=== PATIENT | male | born 1950 | race Caucasian/White ===

== ENCOUNTER 2017-07-17 09:22 | Observation (INO) | payer MEDICARE ==
[~2017-07-17] VITALS: Ht 172.7 cm; Wt 91.1 kg
[2017-07-17] MEDS ORDERED: ASPIRIN 325 MG TABLET EC PO ONE (10:00)
[2017-07-17] MEDS ORDERED: ASPIRIN 325 MG TABLET EC ONE (10:00)
[2017-07-17] MEDS ORDERED: LISI40TA PO (10:02)
[2017-07-17] MEDS ORDERED: BUSP10TA PO (10:02)
[2017-07-17] MEDS ORDERED: METF500T9 PO (10:02)
[2017-07-17] MEDS ORDERED: ASPI-515 PO (10:02)
[2017-07-17] MEDS ORDERED: IBUP-1223 PO (10:02)
[2017-07-17] MEDS ORDERED: GABA800T2 PO (10:02)
[2017-07-17 10:04] VITALS: BP 162/101
[2017-07-17] MEDS ORDERED: NITR0.3T5 SL (10:04)
[2017-07-17] MEDS ORDERED: CARV12.543 PO (10:04)
[2017-07-17] MEDS ORDERED: AMLO1TAB99 PO (10:04)
[2017-07-17 10:34] LABS: BASOPHILS # (AUTO) 0.07 x10^3/uL (0-0.1); BASOPHILS % (AUTO) 1 % (0-1); EOSINOPHILS # (AUTO) 0.04 x10^3/uL (0-0.4); EOSINOPHILS % (AUTO) 1 % (1-7); LYMPHOCYTES # (AUTO) 1.05 x10^3/uL (1-3.4); LYMPHOCYTES % (AUTO) 15 % (22-44); MD NO; MEAN CORPUSCULAR HEMOGLOBIN 28.9 pg (27.5-34.5); MEAN CORPUSCULAR HGB CONC 33.7 g/dL (33.2-36.2); MEAN CORPUSCULAR VOLUME 85.9 fL (81-97); MEAN PLATELET VOLUME 7.9 fL (7.4-10.4); MONOCYTES # (AUTO) 0.38 x10^3/uL (0.2-0.8); MONOCYTES % (AUTO) 6 % (2-9); NEUTROPHILS # (AUTO) 5.28 x10^3/uL (1.8-6.8); NEUTROPHILS % (AUTO) 77 % (42-75); PLATELET COUNT 322 x10^3/uL (130-400); RED BLOOD COUNT 5.06 x10^6/uL (4.38-5.82)
[2017-07-17] MEDS ORDERED: NITROGLYCERIN 5 MG/ML, 10ML ONE (10:44)
[2017-07-17] MEDS ORDERED: VERAPAMIL 2.5 MG/ML, 2ML ONE (10:44)
[2017-07-17] MEDS ORDERED: MIDAZOLAM 1 MG/ML, 5ML ONE (10:44)
[2017-07-17] MEDS ORDERED: BIVALIRUDIN 250 MG ONE (10:44)
[2017-07-17] MEDS ORDERED: HEPARIN 1,000 UNITS/ML, 10ML ONE (10:44)
[2017-07-17] MEDS ORDERED: FENTANYL PF 100 MCG/2ML ONE (10:44)
[2017-07-17] MEDS ORDERED: TICAGRELOR 90 MG TABLET ONE (10:44)
[2017-07-17 10:45] LABS: ANION GAP 12 mmol/L (5-15); CALCIUM 8.8 mg/dL (8.5-10.1); CHLORIDE 102 mmol/L (98-107); CREATININE 1.26 mg/dL (0.7-1.3)
[2017-07-17] MEDS ORDERED: LIDOCAINE-MPF 2% ,5ML ONE (10:45)
[2017-07-17] MEDS ORDERED: LIDOCAINE 2%, 2ML ONE (11:35)
[2017-07-17] MEDS: SODIUM CHLORIDE 0.9% 1,000 ML IV SCH ×2 (12:26→20:26)
[2017-07-17] MEDS ORDERED: ACETAMINOPHEN 325 MG TABLET PO PRN (12:30)
[2017-07-17 13:22] VITALS: BP 132/81
[2017-07-17 13:52] VITALS: BP 152/97
[2017-07-17 19:04] VITALS: BP 161/66
[2017-07-17] MEDS ORDERED: ZOLPIDEM 5MG TABLET PO PRN (22:30)
[2017-07-18 01:49] VITALS: BP 159/94
[2017-07-18] MEDS: SODIUM CHLORIDE 0.9% 1,000 ML IV SCH (04:26)
[2017-07-18 07:00] VITALS: BP 162/102
[2017-07-18] MEDS ORDERED: NITR0.3T5 SL (09:26)
== END 2017-07-18 09:45 | disposition home or self-care (01) ==
LOC: CACL 09:22 → 5SO 12:40 → CACL 22:31 → 5SO 22:31 → DCLOUNGE 07-18 09:31
PROVIDERS: ADMIT Internal Medicine Cardiovascular Disease; ATTEND Internal Medicine Cardiovascular Disease
DX: I25.10 Atherosclerotic heart disease of native coronary artery without angina pectoris (principal); I12.9 Hypertensive chronic kidney disease with stage 1 through stage 4 chronic kidney disease, or unspecified chronic kidney disease; I25.2 Old myocardial infarction; E78.5 Hyperlipidemia, unspecified; N18.9 Chronic kidney disease, unspecified; E11.22 Type 2 diabetes mellitus with diabetic chronic kidney disease; R94.31 Abnormal electrocardiogram [ECG] [EKG]; Z23 Encounter for immunization
CPT/HCPCS: 36415; 80048; 85025; 93306; 93458; 93880; 93970; 99156; C1769; C1894; G0378; J1644; J2250; J3010; J3490; J7030; Q9967; J0583

== ENCOUNTER 2017-08-12 04:14 | Inpatient (IN) | payer MEDICARE ==
[2017-08-09 12:35] LABS: MICROSCOPIC INDICATED
[2017-08-09 12:40] LABS: BASOPHILS # (AUTO) 0.03 x10^3/uL (0-0.1); BASOPHILS % (AUTO) 0 % (0-1); EOSINOPHILS # (AUTO) 0.07 x10^3/uL (0-0.4); EOSINOPHILS % (AUTO) 1 % (1-7); LYMPHOCYTES # (AUTO) 1.28 x10^3/uL (1-3.4); LYMPHOCYTES % (AUTO) 18 % (22-44); MD NO; MEAN CORPUSCULAR HEMOGLOBIN 29.6 pg (27.5-34.5); MEAN CORPUSCULAR HGB CONC 34.1 g/dL (33.2-36.2); MEAN CORPUSCULAR VOLUME 86.8 fL (81-97); MEAN PLATELET VOLUME 7.8 fL (7.4-10.4); MONOCYTES # (AUTO) 0.31 x10^3/uL (0.2-0.8); MONOCYTES % (AUTO) 4 % (2-9); NEUTROPHILS # (AUTO) 5.57 x10^3/uL (1.8-6.8); NEUTROPHILS % (AUTO) 77 % (42-75); PLATELET COUNT 338 x10^3/uL (130-400); RED BLOOD COUNT 5.11 x10^6/uL (4.38-5.82); RED CELL DISTRIBUTION WIDTH 14.1 % (9.4-14.8)
[2017-08-09 12:45] LABS: INTERNATIONAL NORMALIZED RATIO 1.07 (0.93-1.1)
[2017-08-09 13:11] LABS: ALANINE AMINOTRANSFERASE 29 U/L (12-78); ALBUMIN 4.1 g/dL (3.4-5.0); ANION GAP 11 mmol/L (5-15); CALCIUM 9.3 mg/dL (8.5-10.1); CHLORIDE 106 mmol/L (98-107); CREATININE 1.33 mg/dL (0.7-1.3)
[2017-08-09 13:13] LABS: ALKALINE PHOSPHATASE 123 U/L (45-117); TOTAL PROTEIN 7.9 g/dL (6.4-8.2)
[2017-08-09 13:19] LABS: HEMOGLOBIN A1C 8.3 % (4.2-6.3)
[~2017-08-12] VITALS: Ht 172.7 cm; Wt 88.9 kg
[~2017-08-12 04:14] MED LIST: AMLO1TAB99 PO; ASPI-515 PO; BUSP10TA PO; CARV12.543 PO; GABA800T2 PO; IBUP-1223 PO; LISI40TA PO; METF500T9 PO; NITR0.3T5 SL
[2017-08-12] MEDS ORDERED: ALBUMIN HUMAN 5% 500 ML IV PRN (04:30)
[2017-08-12 04:34] VITALS: BP_SYST 149; BP_SYST 150; BP_DIAS 90; BP_DIAS 92
[2017-08-12] MEDS ORDERED: DO NOT GIVE MC SCH (05:00)
[2017-08-12] MEDS ORDERED: INSULIN LISPRO 100 UNITS/ML, PEN SQ-INSULIN SCH (05:00)
[2017-08-12] MEDS ORDERED: METOPROLOL TARTRATE 25 MG TABLET PO ONE (05:00)
[2017-08-12] MEDS ORDERED: CHLORHEXIDINE 15 ML BOTTLE MM SCH (05:00)
[2017-08-12] MEDS: MUPIROCIN OINT 2%, 22GM TP SCH ×2 (05:21→21:55)
[2017-08-12] MEDS: SODIUM CHLORIDE FLUSH 10ML SYR IVF SCH ×3 (05:27→21:55)
[2017-08-12] MEDS ORDERED: PAPAVERINE 30 MG/ML, 2ML ONE (07:21)
[2017-08-12] MEDS ORDERED: HEPARIN 1,000 UNITS/ML, 10ML ONE (07:21)
[2017-08-12 07:28] VITALS: BP_SYST 149; BP_SYST 156; BP_DIAS 92; BP_DIAS 96
[2017-08-12] MEDS ORDERED: DEXMEDETOMIDINE 200 MCG in SODIUM CHLORIDE 0.9% 48 ML IV SCH (07:30)
[2017-08-12] MEDS ORDERED: REGULAR INSULIN 62.5 UNITS in SODIUM CHLORIDE 0.9% 249.375 ML IV PRN ×2 (07:30→12:04)
[2017-08-12] MEDS ORDERED: MANNITOL PMX 20% 500 ML IVPB PRN (07:30)
[2017-08-12] MEDS ORDERED: VANCOMYCIN 1,400 MG in SODIUM CHLORIDE 0.9% 250 ML IV PRN (07:30)
[2017-08-12] MEDS ORDERED: PHENYLEPHRINE 10 MG in SODIUM CHLORIDE 0.9% 249 ML IV PRN ×2 (07:30→12:04)
[2017-08-12] MEDS ORDERED: EPINEPHRINE 2 MG in SODIUM CHLORIDE 0.9% 248 ML IV SCH (07:30)
[2017-08-12] MEDS ORDERED: POTASSIUM CHLORIDE 80 MEQ, SODIUM BICARBONATE 8.4% 10 MEQ, MAGNESIUM SULFATE 0.5 GM, LI... IV PRN (07:30)
[2017-08-12] MEDS ORDERED: FENTANYL PF 250 MCG/5ML ONE ×4 (07:32→07:33)
[2017-08-12] MEDS ORDERED: MIDAZOLAM 10MG/2 ML ONE (07:32)
[2017-08-12] MEDS ORDERED: CALCIUM CHLORIDE 10%, 10ML SYR ONE (07:35)
[2017-08-12] MEDS ORDERED: HEPARIN 1,000 UNITS/ML, 10ML IV ONE (08:55)
[2017-08-12] MEDS ORDERED: PAPAVERINE 30 MG/ML, 2ML IVPush ONE (08:56)
[2017-08-12] MEDS: DOCUSATE 100 MG CAPSULE PO SCH ×2 (09:00→21:55)
[2017-08-12] MEDS ORDERED: DESMOPRESSIN 24 MCG in SODIUM CHLORIDE 0.9% 50 ML IVPB ONE (11:30)
[2017-08-12] MEDS ORDERED: SODIUM BICARBONATE 1 MEQ/ML, 50ML VIAL ONE (11:40)
[2017-08-12] MEDS ORDERED: SODIUM BICARB 8.4%, 50ML SYRINGE ONE (11:40)
[2017-08-12] MEDS ORDERED: HEPARIN 1,000 UNITS/ML, 30ML ONE (11:41)
[2017-08-12] MEDS ORDERED: LIDOCAINE 2% 100MG/5ML SYRINGE ONE (11:41)
[2017-08-12] MEDS ORDERED: ALBUMIN HUMAN 25% 50 ML ONE (11:41)
[2017-08-12] MEDS ORDERED: ROCURONIUM 10MG/ML,5ML ONE ×3 (11:44)
[2017-08-12] MEDS ORDERED: PROPOFOL 10 MG/ML, 20ML ONE (11:44)
[2017-08-12] MEDS ORDERED: PROTAMINE SULFATE 10 MG/ML, 25ML ONE ×2 (11:44)
[2017-08-12] MEDS ORDERED: FUROSEMIDE 20 MG/2 ML ONE (11:44)
[2017-08-12] MEDS ORDERED: VASOPRESSIN 20 UNIT/ML, 1ML ONE (11:45)
[2017-08-12] MEDS ORDERED: EPINEPHRINE 1 MG/ML, 1ML ONE (11:45)
[2017-08-12] MEDS ORDERED: SODIUM CHLORIDE 0.9% 1,000 ML IV PRN (12:04)
[2017-08-12] MEDS ORDERED: DOBUTAMINE 250 MG in SODIUM CHLORIDE 0.9% 230 ML IV PRN (12:04)
[2017-08-12] MEDS ORDERED: NITROGLYCERIN/D5W PMX 250 ML IV PRN (12:04)
[2017-08-12] MEDS ORDERED: VASOPRESSIN 50 UNIT in SODIUM CHLORIDE 0.9% 250 ML IV PRN (12:04)
[2017-08-12] MEDS ORDERED: BISACODYL 10 MG SUPP PR PRN (12:30)
[2017-08-12] MEDS ORDERED: LACTATED RINGERS 1,000 ML IV PRN (12:30)
[2017-08-12] MEDS ORDERED: ACETAMINOPHEN 325 MG TABLET PO PRN (12:30)
[2017-08-12] MEDS ORDERED: ONDANSETRON ODT 4 MG PO PRN (12:30)
[2017-08-12] MEDS ORDERED: ACETAMINOPHEN 650 MG SUPP PR PRN (12:30)
[2017-08-12] MEDS ORDERED: EPINEPHRINE 2 MG in SODIUM CHLORIDE 0.9% 248 ML IV PRN (12:30)
[2017-08-12] MEDS ORDERED: GLUCAGON 1 MG IM PRN (12:30)
[2017-08-12] MEDS ORDERED: DEXTROSE 4 GM TAB.CHEW PO PRN (12:30)
[2017-08-12] MEDS ORDERED: MIDAZOLAM 1 MG/ML, 5ML IVPush PRN (12:30)
[2017-08-12] MEDS ORDERED: INSULIN REGULAR 100 UNITS/ML, 3ML VIAL IVPush PRN (12:30)
[2017-08-12] MEDS ORDERED: ONDANSETRON 2MG/ML, 2ML IVPush PRN (12:30)
[2017-08-12] MEDS: KSCALE TO 4.5 IV SCH ×2 (12:30→18:30)
[2017-08-12] MEDS ORDERED: DEXTROSE 50%, 50ML SYRINGE IVPush PRN (12:30)
[2017-08-12] MEDS ORDERED: BISACODYL 5 MG EC TABLET PO PRN (12:30)
[2017-08-12] MEDS ORDERED: PROCHLORPERAZINE 5 MG/ML, 2ML IVPush PRN (12:30)
[2017-08-12 12:59] LABS: GLUCOSE BY BLOOD GAS ANALYZER 193 mg/dL (70-110); HEMOGLOBIN BY BLOOD GAS ANALYZ 12.3 g/dL (14.0-18.0); POTASSIUM BY BLOOD GAS ANALYZR 3.6 mmol/L (3.6-5.5)
[2017-08-12 13:06] LABS: INTERNATIONAL NORMALIZED RATIO 1.21 (0.93-1.1); PROTHROMBIN TIME 12.4 Seconds (9.6-11.5)
[2017-08-12] MEDS: SODIUM BICARB 8.4%, 50ML SYRINGE IV PRN ×2 (13:10→14:32)
[2017-08-12] MEDS: MORPHINE SULFATE 4 MG/ML, 1ML IVPush PRN ×2 (13:35→16:51)
[2017-08-12] MEDS: MAGNESIUM SULFATE 1 GM in SODIUM CHLORIDE 0.9% 50 ML IVPB SCH (13:43)
[2017-08-12] MEDS: DEXMEDETOMIDINE 200 MCG in SODIUM CHLORIDE 0.9% 48 ML IV PRN ×2 (13:47→17:33)
[2017-08-12] MEDS ORDERED: POTASSIUM CHLORIDE PMX 100 ML IV ONE (14:00)
[2017-08-12] MEDS: INSULIN LISPRO 100 UNITS/ML, PEN SQ-INSULIN SCH ×2 (16:00→21:00)
[2017-08-12] MEDS ORDERED: POTASSIUM CHLORIDE 30 MEQ in SODIUM CHLORIDE 0.9% 100 ML IV ONE (19:30)
[2017-08-12] MEDS: VANCOMYCIN 1,300 MG in SODIUM CHLORIDE 0.9% 250 ML IVPB SCH (19:36)
[2017-08-12] MEDS: HYDROcodone/APAP 5/325 TABLET PO PRN (20:01)
[2017-08-12] MEDS: MUPIROCIN OINT 2%, 22GM NAS SCH (21:00)
[2017-08-13] MEDS: KSCALE TO 4.5 IV SCH ×2 (00:30→06:30)
[2017-08-13] MEDS: HYDROcodone/APAP 5/325 TABLET PO PRN ×4 (01:19→15:15)
[2017-08-13] MEDS: MORPHINE SULFATE 4 MG/ML, 1ML IVPush PRN ×4 (02:11→07:46)
[2017-08-13 04:29] LABS: BASOPHILS # (AUTO) 0.02 x10^3/uL (0-0.1); BASOPHILS % (AUTO) 0 % (0-1); EOSINOPHILS % (AUTO) 0 % (1-7); LYMPHOCYTES # (AUTO) 0.77 x10^3/uL (1-3.4); LYMPHOCYTES % (AUTO) 10 % (22-44); MD NO; MEAN CORPUSCULAR HEMOGLOBIN 29.1 pg (27.5-34.5); MEAN CORPUSCULAR HGB CONC 33.6 g/dL (33.2-36.2); MEAN CORPUSCULAR VOLUME 86.6 fL (81-97); MEAN PLATELET VOLUME 7.7 fL (7.4-10.4); MONOCYTES # (AUTO) 0.49 x10^3/uL (0.2-0.8); MONOCYTES % (AUTO) 7 % (2-9); NEUTROPHILS # (AUTO) 6.18 x10^3/uL (1.8-6.8); NEUTROPHILS % (AUTO) 83 % (42-75); PLATELET COUNT 182 x10^3/uL (130-400); RED BLOOD COUNT 3.48 x10^6/uL (4.38-5.82); RED CELL DISTRIBUTION WIDTH 14.2 % (9.4-14.8)
[2017-08-13 04:37] LABS: ANION GAP 7 mmol/L (5-15); CALCIUM 8.1 mg/dL (8.5-10.1); CHLORIDE 113 mmol/L (98-107); CREATININE 1.21 mg/dL (0.7-1.3)
[2017-08-13] MEDS: INSULIN LISPRO 100 UNITS/ML, PEN SQ-INSULIN SCH ×4 (07:00→20:14)
[2017-08-13] MEDS: VANCOMYCIN 1,300 MG in SODIUM CHLORIDE 0.9% 250 ML IVPB SCH (07:46)
[2017-08-13] MEDS: CARVEDILOL 3.125 MG TABLET PO SCH ×2 (08:00→17:52)
[2017-08-13] MEDS ORDERED: MAGNESIUM HYDROXIDE 8%, 30ML UDC PO PRN (08:00)
[2017-08-13] MEDS ORDERED: METOPROLOL TARTRATE 25 MG TABLET PO/NG SCH (09:00)
[2017-08-13] MEDS: SODIUM CHLORIDE FLUSH 10ML SYR IVF SCH ×5 (09:00→20:12)
[2017-08-13] MEDS: MUPIROCIN OINT 2%, 22GM NAS SCH ×2 (09:00→20:13)
[2017-08-13] MEDS: ASPIRIN 81 MG TABLET EC PO SCH (09:29)
[2017-08-13] MEDS: GABAPENTIN 400 MG CAPSULE PO SCH ×3 (09:29→20:14)
[2017-08-13] MEDS: DOCUSATE 100 MG CAPSULE PO SCH ×2 (09:29→20:13)
[2017-08-13] MEDS: BUSPIRONE 10 MG TABLET PO SCH (09:30)
[2017-08-13] MEDS: FUROSEMIDE 20 MG/2 ML IV SCH (09:32)
[2017-08-13 10:30] VITALS: BP 148/91
[2017-08-13] MEDS: POTASSIUM CHLORIDE 10 MEQ TABLET.ER PO SCH (11:05)
[2017-08-13] MEDS: CHLORHEXIDINE 15 ML BOTTLE MM SCH (12:32)
[2017-08-13] MEDS: MAGNESIUM SULFATE 1 GM in SODIUM CHLORIDE 0.9% 50 ML IVPB SCH (12:32)
[2017-08-13 17:54] VITALS: BP 157/94
[2017-08-13 18:37] VITALS: BP 142/94
[2017-08-13] MEDS: ATORVASTATIN 40 MG TABLET PO SCH (20:14)
[2017-08-14] MEDS: CHLORHEXIDINE 15 ML BOTTLE MM SCH ×3 (00:30→19:49)
[2017-08-14 01:47] VITALS: BP 142/81
[2017-08-14] MEDS: HYDROcodone/APAP 5/325 TABLET PO PRN ×3 (03:19→20:53)
[2017-08-14 04:21] LABS: BASOPHILS # (AUTO) 0.03 x10^3/uL (0-0.1); BASOPHILS % (AUTO) 0 % (0-1); EOSINOPHILS # (AUTO) 0.06 x10^3/uL (0-0.4); EOSINOPHILS % (AUTO) 1 % (1-7); LYMPHOCYTES # (AUTO) 0.79 x10^3/uL (1-3.4); LYMPHOCYTES % (AUTO) 9 % (22-44); MD NO; MEAN CORPUSCULAR HEMOGLOBIN 29.8 pg (27.5-34.5); MEAN CORPUSCULAR HGB CONC 34.1 g/dL (33.2-36.2); MEAN CORPUSCULAR VOLUME 87.6 fL (81-97); MEAN PLATELET VOLUME 8.1 fL (7.4-10.4); MONOCYTES # (AUTO) 0.59 x10^3/uL (0.2-0.8); MONOCYTES % (AUTO) 7 % (2-9); NEUTROPHILS # (AUTO) 7.63 x10^3/uL (1.8-6.8); NEUTROPHILS % (AUTO) 84 % (42-75); PLATELET COUNT 168 x10^3/uL (130-400); RED CELL DISTRIBUTION WIDTH 13.9 % (9.4-14.8)
[2017-08-14 04:27] LABS: ANION GAP 12 mmol/L (5-15); CALCIUM 8.4 mg/dL (8.5-10.1); CHLORIDE 106 mmol/L (98-107); CREATININE 1.19 mg/dL (0.7-1.3)
[2017-08-14] MEDS: CARVEDILOL 3.125 MG TABLET PO SCH ×2 (05:31→18:23)
[2017-08-14] MEDS: INSULIN LISPRO 100 UNITS/ML, PEN SQ-INSULIN SCH ×4 (07:00→19:56)
[2017-08-14 07:04] VITALS: BP 134/77
[2017-08-14] MEDS: BUSPIRONE 10 MG TABLET PO SCH (08:05)
[2017-08-14] MEDS: ASPIRIN 81 MG TABLET EC PO SCH (08:06)
[2017-08-14] MEDS: GABAPENTIN 400 MG CAPSULE PO SCH ×3 (08:06→19:45)
[2017-08-14] MEDS: ENOXAPARIN 40 MG/0.4 ML SQ SCH (08:06)
[2017-08-14] MEDS: FUROSEMIDE 20 MG/2 ML IV SCH (08:06)
[2017-08-14] MEDS: DOCUSATE 100 MG CAPSULE PO SCH ×2 (08:06→19:45)
[2017-08-14] MEDS: POTASSIUM CHLORIDE 10 MEQ TABLET.ER PO SCH (08:06)
[2017-08-14] MEDS: SODIUM CHLORIDE FLUSH 10ML SYR IVF SCH ×6 (08:07→19:44)
[2017-08-14] MEDS: MUPIROCIN OINT 2%, 22GM NAS SCH ×2 (08:08→19:45)
[2017-08-14] MEDS ORDERED: METOPROLOL TARTRATE 25 MG TABLET PO/NG SCH (09:00)
[2017-08-14] MEDS: LISINOPRIL 5 MG TABLET PO SCH ×2 (11:08→19:45)
[2017-08-14] MEDS: MAGNESIUM SULFATE 1 GM in SODIUM CHLORIDE 0.9% 50 ML IVPB SCH (12:57)
[2017-08-14 13:41] VITALS: BP 152/88
[2017-08-14] MEDS: ATORVASTATIN 40 MG TABLET PO SCH (19:45)
[2017-08-14 19:58] VITALS: BP 138/62
[2017-08-15 04:50] VITALS: BP 119/70
[2017-08-15] MEDS: CARVEDILOL 3.125 MG TABLET PO SCH ×2 (04:51→17:23)
[2017-08-15] MEDS: HYDROcodone/APAP 5/325 TABLET PO PRN ×3 (04:51→20:22)
[2017-08-15 05:04] LABS: ANION GAP 7 mmol/L (5-15); CALCIUM 8.4 mg/dL (8.5-10.1); CHLORIDE 105 mmol/L (98-107)
[2017-08-15 05:07] LABS: BASOPHILS # (AUTO) 0.03 x10^3/uL (0-0.1); BASOPHILS % (AUTO) 1 % (0-1); EOSINOPHILS # (AUTO) 0.17 x10^3/uL (0-0.4); EOSINOPHILS % (AUTO) 2 % (1-7); LYMPHOCYTES % (AUTO) 14 % (22-44); MD NO; MEAN CORPUSCULAR HEMOGLOBIN 29.1 pg (27.5-34.5); MEAN CORPUSCULAR HGB CONC 33.1 g/dL (33.2-36.2); MEAN CORPUSCULAR VOLUME 87.8 fL (81-97); MONOCYTES # (AUTO) 0.47 x10^3/uL (0.2-0.8); MONOCYTES % (AUTO) 6 % (2-9); NEUTROPHILS # (AUTO) 5.75 x10^3/uL (1.8-6.8); NEUTROPHILS % (AUTO) 77 % (42-75); PLATELET COUNT 187 x10^3/uL (130-400)
[2017-08-15] MEDS: INSULIN LISPRO 100 UNITS/ML, PEN SQ-INSULIN SCH ×4 (07:00→20:32)
[2017-08-15 08:33] VITALS: BP 107/70
[2017-08-15] MEDS: MUPIROCIN OINT 2%, 22GM NAS SCH ×2 (10:03→20:23)
[2017-08-15] MEDS: BUSPIRONE 10 MG TABLET PO SCH (10:03)
[2017-08-15] MEDS: ENOXAPARIN 40 MG/0.4 ML SQ SCH (10:04)
[2017-08-15] MEDS: POTASSIUM CHLORIDE 10 MEQ TABLET.ER PO SCH (10:05)
[2017-08-15] MEDS: GABAPENTIN 400 MG CAPSULE PO SCH ×3 (10:05→20:31)
[2017-08-15] MEDS: FUROSEMIDE 20 MG/2 ML IV SCH (10:05)
[2017-08-15] MEDS: ASPIRIN 81 MG TABLET EC PO SCH (10:05)
[2017-08-15] MEDS: CLOPIDOGREL 75 MG TABLET PO SCH (10:05)
[2017-08-15] MEDS: DOCUSATE 100 MG CAPSULE PO SCH ×2 (10:05→20:22)
[2017-08-15] MEDS: SODIUM CHLORIDE FLUSH 10ML SYR IVF SCH ×6 (10:06→20:23)
[2017-08-15] MEDS: LISINOPRIL 5 MG TABLET PO SCH ×2 (10:06→20:22)
[2017-08-15 14:30] VITALS: BP 127/81
[2017-08-15 18:47] VITALS: BP 110/72
[2017-08-15] MEDS: ATORVASTATIN 40 MG TABLET PO SCH (20:22)
[2017-08-16 03:09] VITALS: BP 141/92
[2017-08-16 04:59] LABS: ANION GAP 9 mmol/L (5-15); CALCIUM 8.1 mg/dL (8.5-10.1); CHLORIDE 105 mmol/L (98-107)
[2017-08-16 05:01] LABS: BASOPHILS # (AUTO) 0.02 x10^3/uL (0-0.1); BASOPHILS % (AUTO) 0 % (0-1); EOSINOPHILS # (AUTO) 0.25 x10^3/uL (0-0.4); EOSINOPHILS % (AUTO) 4 % (1-7); LYMPHOCYTES # (AUTO) 1.01 x10^3/uL (1-3.4); LYMPHOCYTES % (AUTO) 17 % (22-44); MD NO; MEAN CORPUSCULAR HEMOGLOBIN 29.3 pg (27.5-34.5); MEAN CORPUSCULAR HGB CONC 33.7 g/dL (33.2-36.2); MEAN CORPUSCULAR VOLUME 86.9 fL (81-97); MEAN PLATELET VOLUME 7.9 fL (7.4-10.4); MONOCYTES # (AUTO) 0.38 x10^3/uL (0.2-0.8); MONOCYTES % (AUTO) 6 % (2-9); NEUTROPHILS # (AUTO) 4.26 x10^3/uL (1.8-6.8); NEUTROPHILS % (AUTO) 72 % (42-75); PLATELET COUNT 236 x10^3/uL (130-400); RED BLOOD COUNT 3.53 x10^6/uL (4.38-5.82)
[2017-08-16 06:02] VITALS: BP 121/79
[2017-08-16] MEDS: CARVEDILOL 3.125 MG TABLET PO SCH ×2 (06:03→17:32)
[2017-08-16 07:29] VITALS: BP 122/76
[2017-08-16] MEDS: ENOXAPARIN 40 MG/0.4 ML SQ SCH (09:29)
[2017-08-16] MEDS: LISINOPRIL 5 MG TABLET PO SCH ×2 (09:29→20:01)
[2017-08-16] MEDS: FUROSEMIDE 20 MG/2 ML IV SCH (09:29)
[2017-08-16] MEDS: CLOPIDOGREL 75 MG TABLET PO SCH (09:29)
[2017-08-16] MEDS: INSULIN LISPRO 100 UNITS/ML, PEN SQ-INSULIN SCH ×4 (09:30→20:09)
[2017-08-16] MEDS: POTASSIUM CHLORIDE 10 MEQ TABLET.ER PO SCH (09:30)
[2017-08-16] MEDS: ASPIRIN 81 MG TABLET EC PO SCH (09:30)
[2017-08-16] MEDS: HYDROcodone/APAP 5/325 TABLET PO PRN ×3 (09:30→20:01)
[2017-08-16] MEDS: GABAPENTIN 400 MG CAPSULE PO SCH ×3 (09:30→20:00)
[2017-08-16] MEDS: DOCUSATE 100 MG CAPSULE PO SCH ×2 (09:30→20:00)
[2017-08-16] MEDS: BUSPIRONE 10 MG TABLET PO SCH (09:30)
[2017-08-16] MEDS: MUPIROCIN OINT 2%, 22GM NAS SCH ×2 (09:30→20:01)
[2017-08-16] MEDS: SODIUM CHLORIDE FLUSH 10ML SYR IVF SCH ×6 (09:31→20:01)
[2017-08-16 14:00] VITALS: BP 124/78
[2017-08-16 18:47] VITALS: BP 117/71
[2017-08-16] MEDS: ATORVASTATIN 40 MG TABLET PO SCH (20:01)
[2017-08-17 04:00] VITALS: BP 122/79
[2017-08-17 05:24] LABS: BASOPHILS # (AUTO) 0.03 x10^3/uL (0-0.1); BASOPHILS % (AUTO) 1 % (0-1); EOSINOPHILS # (AUTO) 0.28 x10^3/uL (0-0.4); EOSINOPHILS % (AUTO) 6 % (1-7); LYMPHOCYTES # (AUTO) 0.97 x10^3/uL (1-3.4); LYMPHOCYTES % (AUTO) 20 % (22-44); MD NO; MEAN CORPUSCULAR HEMOGLOBIN 29.4 pg (27.5-34.5); MEAN CORPUSCULAR HGB CONC 33.7 g/dL (33.2-36.2); MEAN CORPUSCULAR VOLUME 87.2 fL (81-97); MEAN PLATELET VOLUME 7.7 fL (7.4-10.4); MONOCYTES # (AUTO) 0.41 x10^3/uL (0.2-0.8); MONOCYTES % (AUTO) 8 % (2-9); NEUTROPHILS # (AUTO) 3.25 x10^3/uL (1.8-6.8); NEUTROPHILS % (AUTO) 66 % (42-75); PLATELET COUNT 265 x10^3/uL (130-400); RED BLOOD COUNT 3.66 x10^6/uL (4.38-5.82); RED CELL DISTRIBUTION WIDTH 14.1 % (9.4-14.8)
[2017-08-17 05:39] LABS: CHLORIDE 108 mmol/L (98-107)
[2017-08-17] MEDS: HYDROcodone/APAP 5/325 TABLET PO PRN ×3 (05:40→20:30)
[2017-08-17] MEDS: CARVEDILOL 3.125 MG TABLET PO SCH ×2 (05:40→16:43)
[2017-08-17 05:47] LABS: ANION GAP 9 mmol/L (5-15); CALCIUM 8.7 mg/dL (8.5-10.1); CREATININE 1.02 mg/dL (0.7-1.3)
[2017-08-17] MEDS: INSULIN LISPRO 100 UNITS/ML, PEN SQ-INSULIN SCH ×4 (07:00→20:46)
[2017-08-17 08:00] VITALS: BP 113/60
[2017-08-17] MEDS ORDERED: POTASSIUM CHLORIDE 20 MEQ TAB.ER.PRT PO SCH (08:00)
[2017-08-17] MEDS: SODIUM CHLORIDE FLUSH 10ML SYR IVF SCH ×6 (09:00→20:37)
[2017-08-17] MEDS: DOCUSATE 100 MG CAPSULE PO SCH ×2 (09:12→20:28)
[2017-08-17] MEDS: BUSPIRONE 10 MG TABLET PO SCH (09:12)
[2017-08-17] MEDS: LISINOPRIL 5 MG TABLET PO SCH ×2 (09:12→20:29)
[2017-08-17] MEDS: ASPIRIN 81 MG TABLET EC PO SCH (09:12)
[2017-08-17] MEDS: GABAPENTIN 400 MG CAPSULE PO SCH ×3 (09:13→20:28)
[2017-08-17] MEDS: CLOPIDOGREL 75 MG TABLET PO SCH (09:13)
[2017-08-17] MEDS: ENOXAPARIN 40 MG/0.4 ML SQ SCH (09:14)
[2017-08-17] MEDS: MUPIROCIN OINT 2%, 22GM NAS SCH (09:15)
[2017-08-17 16:39] VITALS: BP 130/80
[2017-08-17] MEDS: ATORVASTATIN 40 MG TABLET PO SCH (20:28)
[2017-08-18 04:18] VITALS: BP 121/71
[2017-08-18 05:57] LABS: CHLORIDE 105 mmol/L (98-107)
[2017-08-18] MEDS: CARVEDILOL 3.125 MG TABLET PO SCH ×2 (06:02→17:36)
[2017-08-18 06:17] LABS: ANION GAP 8 mmol/L (5-15); CALCIUM 8.9 mg/dL (8.5-10.1); CREATININE 1.13 mg/dL (0.7-1.3)
[2017-08-18 06:53] VITALS: BP 146/84
[2017-08-18] MEDS: INSULIN LISPRO 100 UNITS/ML, PEN SQ-INSULIN SCH ×4 (07:00→20:08)
[2017-08-18] MEDS: SODIUM CHLORIDE FLUSH 10ML SYR IVF SCH ×6 (09:00→20:07)
[2017-08-18] MEDS: CLOPIDOGREL 75 MG TABLET PO SCH (09:39)
[2017-08-18] MEDS: DOCUSATE 100 MG CAPSULE PO SCH ×2 (09:39→20:08)
[2017-08-18] MEDS: ENOXAPARIN 40 MG/0.4 ML SQ SCH (09:39)
[2017-08-18] MEDS: BUSPIRONE 10 MG TABLET PO SCH (09:40)
[2017-08-18] MEDS: ASPIRIN 81 MG TABLET EC PO SCH (09:40)
[2017-08-18] MEDS: HYDROcodone/APAP 5/325 TABLET PO PRN ×2 (09:40→20:08)
[2017-08-18] MEDS: LISINOPRIL 5 MG TABLET PO SCH ×2 (09:40→20:07)
[2017-08-18] MEDS: GABAPENTIN 400 MG CAPSULE PO SCH ×3 (09:40→20:08)
[2017-08-18 12:36] VITALS: BP 127/78
[2017-08-18 18:37] VITALS: BP 147/83
[2017-08-18] MEDS: ATORVASTATIN 40 MG TABLET PO SCH (20:08)
[2017-08-19 00:31] VITALS: BP 143/93
[2017-08-19] MEDS: CARVEDILOL 3.125 MG TABLET PO SCH (05:42)
[2017-08-19 06:20] LABS: CHLORIDE 104 mmol/L (98-107)
[2017-08-19 06:26] LABS: ANION GAP 7 mmol/L (5-15); CALCIUM 8.3 mg/dL (8.5-10.1)
[2017-08-19 06:56] VITALS: BP 148/92
[2017-08-19] MEDS ORDERED: POTASSIUM CHLORIDE 20 MEQ TAB.ER.PRT PO SCH (08:00)
[2017-08-19] MEDS: DOCUSATE 100 MG CAPSULE PO SCH (08:11)
[2017-08-19] MEDS: ENOXAPARIN 40 MG/0.4 ML SQ SCH (08:11)
[2017-08-19] MEDS: GABAPENTIN 400 MG CAPSULE PO SCH (08:11)
[2017-08-19] MEDS: LISINOPRIL 5 MG TABLET PO SCH (08:11)
[2017-08-19] MEDS: ASPIRIN 81 MG TABLET EC PO SCH (08:12)
[2017-08-19] MEDS: CLOPIDOGREL 75 MG TABLET PO SCH (08:12)
[2017-08-19] MEDS: INSULIN LISPRO 100 UNITS/ML, PEN SQ-INSULIN SCH ×2 (08:12→11:00)
[2017-08-19] MEDS: BUSPIRONE 10 MG TABLET PO SCH (08:12)
[2017-08-19] MEDS: SODIUM CHLORIDE FLUSH 10ML SYR IVF SCH ×3 (08:13)
[2017-08-19] MEDS ORDERED: CARV6.252 PO (08:39)
[2017-08-19] MEDS ORDERED: LISI-167 PO (08:39)
[2017-08-19] MEDS ORDERED: CLOP75TA PO (08:39)
[2017-08-19] MEDS ORDERED: HYDR-3240 PO (08:39)
[2017-08-19] MEDS ORDERED: SPIR25TA PO (08:41)
[2017-08-19] MEDS ORDERED: ATOR40TA78 PO (08:46)
[2017-08-19 12:32] VITALS: BP 133/77
[2017-08-19] MEDS: HYDROcodone/APAP 5/325 TABLET PO PRN (12:39)
[2017-08-23] MEDS ORDERED: FURO20TA3 PO (13:08)
== END 2017-08-19 13:43 | disposition home health service (06) | DRG 235 ==
LOC: 5SO 04:14 → CSU 08:42 → 5SO 08-13 10:44 → DCLOUNGE 08-19 13:30
PROVIDERS: ADMIT Thoracic Surgery (Cardiothoracic Vascular Surgery); ATTEND Thoracic Surgery (Cardiothoracic Vascular Surgery)
PROC: 021209W Bypass Coronary Artery, Three Arteries from Aorta with Autologous Venous Tissue, Open Approach (ICD-10-PCS; 2017-08-12)
PROC: 06BQ4ZZ Excision of Left Saphenous Vein, Percutaneous Endoscopic Approach (ICD-10-PCS; 2017-08-12)
PROC: 5A1221Z Performance of Cardiac Output, Continuous (ICD-10-PCS; 2017-08-12)
PROC: 0210099 Bypass Coronary Artery, One Artery from Left Internal Mammary with Autologous Venous Tissue, Open Approach (ICD-10-PCS; principal; 2017-08-12 08:00)
DX: I25.119 Atherosclerotic heart disease of native coronary artery with unspecified angina pectoris (principal); I50.23 Acute on chronic systolic (congestive) heart failure; I95.9 Hypotension, unspecified; E11.21 Type 2 diabetes mellitus with diabetic nephropathy; I25.82 Chronic total occlusion of coronary artery; I13.0 Hypertensive heart and chronic kidney disease with heart failure and stage 1 through stage 4 chronic kidney disease, or unspecified chronic kidney disease; E11.22 Type 2 diabetes mellitus with diabetic chronic kidney disease; I50.20 Unspecified systolic (congestive) heart failure; E78.5 Hyperlipidemia, unspecified; E66.9 Obesity, unspecified; I25.5 Ischemic cardiomyopathy; N18.9 Chronic kidney disease, unspecified; I25.2 Old myocardial infarction; Z68.29 Body mass index [BMI] 29.0-29.9, adult
CPT/HCPCS: 36415; 36600; 71045; 71046; 80048; 80053; 81001; 82040; 82330; 82800; 82803; 82810; 82947; 82962; 83036; 83735; 84132; 84295; 85014; 85018; 85025; 85049; 85347; 85610; 85730; 86850; 86900; 86923; 87081; 93005; 93312; 93321; 93325; 94002; 94150; J0171; J1644; J1650; J1815; J2250; J2597; J2704; J2720; J3010; J3370; J3475; J3480; J3490; P9045; P9047; C1760; J1940; J2370; J2440; J7050; J7120

== ENCOUNTER 2018-06-08 14:23 | Inpatient (IN) | payer MEDICARE ==
[~2018-06-08] VITALS: Ht 170.2 cm; Wt 95.6 kg
[~2018-06-08 14:23] MED LIST changes: +ATOR40TA78 PO; +CARV6.252 PO; +CLOP75TA PO; +FURO20TA3 PO; -GABA800T2 PO; +GABA800T5 PO; +HYDR-3240 PO; +LISI-167 PO; +SPIR25TA PO
[2018-06-08] MEDS ORDERED: SODIUM CHLORIDE FLUSH 10ML SYR IVF ONE (15:00)
[2018-06-08 15:18] LABS: BASOPHILS # (AUTO) 0.02 x10^3/uL (0-0.1); BASOPHILS % (AUTO) 0 % (0-1); EOSINOPHILS # (AUTO) 0.15 x10^3/uL (0-0.4); EOSINOPHILS % (AUTO) 2 % (1-7); LYMPHOCYTES % (AUTO) 12 % (22-44); MD NO; MEAN CORPUSCULAR HEMOGLOBIN 29.9 pg (27.5-34.5); MEAN CORPUSCULAR HGB CONC 34.3 g/dL (33.2-36.2); MEAN CORPUSCULAR VOLUME 87.2 fL (81-97); MONOCYTES # (AUTO) 0.59 x10^3/uL (0.2-0.8); MONOCYTES % (AUTO) 6 % (2-9); NEUTROPHILS # (AUTO) 7.37 x10^3/uL (1.8-6.8); NEUTROPHILS % (AUTO) 80 % (42-75); PLATELET COUNT 333 x10^3/uL (130-400); RED BLOOD COUNT 4.71 x10^6/uL (4.38-5.82); RED CELL DISTRIBUTION WIDTH 13.6 % (9.4-14.8)
--- NOTE | 2018-06-08 15:22 | NUR ---
[facility]
[2018-06-08 15:26] LABS: ALBUMIN 3.5 g/dL (3.4-5.0); ANION GAP 8 mmol/L (5-15); CALCIUM 9.2 mg/dL (8.5-10.1); CHLORIDE 100 mmol/L (98-107)
[2018-06-08 15:30] LABS: ALANINE AMINOTRANSFERASE 13 U/L (12-78); ALKALINE PHOSPHATASE 127 U/L (45-117); BILIRUBIN,TOTAL 0.6 mg/dL (0.2-1.0); CREATININE 1.93 mg/dL (0.7-1.3); TOTAL PROTEIN 7.7 g/dL (6.4-8.2)
--- NOTE | 2018-06-08 15:31 | NUR ---
PT ARRIVES TO ED WITH C/O OF ELEVATED BG AT AND HAVING A DEEP ABCESS. PT REPORTS THAT SENT HIM HERE BECAUSE THEY WERE UNABLE TO DRAIN ABCESS COMPLETELY AND HIS BG IS ELEVATED. PT IS A/OX4, DOES NOT REPORTS INCREASED URINARY FREQUENCY. PT CONNECTED TO MONITORS AND CALL LIGHT IN REACH. AWAITING FURTHER ORDERS.
[2018-06-08 16:13] LABS: ACETONE, SERUM Negative (Negative)
[2018-06-08] MEDS ORDERED: INSULIN REGULAR 100 UNITS/ML, 3ML VIAL ONE (16:27)
[2018-06-08 16:29] LABS: PH, VENOUS 7.415 pH (7.320-7.420)
[2018-06-08] MEDS ORDERED: SODIUM CHLORIDE 0.9% 1,000ML IVBOLUS ONE (16:30)
[2018-06-08] MEDS ORDERED: INSULIN REGULAR 100 UNITS/ML, 3ML VIAL IVPush ONE (16:30)
--- NOTE | 2018-06-08 16:30 | NUR ---
MEDICATED PER EMAR.
[2018-06-08 16:31] LABS: O2 FLOW ROOM AIR L/min
[2018-06-08] MEDS ORDERED: CEFTRIAXONE PMX 1GM/50ML 50 ML IVPB ONE (18:00)
--- NOTE | 2018-06-08 18:17 | NUR ---
WOUND PACKED WITH 3 INCHES OF 1/4 INCH REGULAR GAUZE AND ABSORBANT DRESSIGN APPLIED TO OVER WOUND. WOUND MARKED WITH SKIN MARKER AROUND BORDER.
--- NOTE | 2018-06-08 20:18 | NUR ---
PT TAKEN TO THE OR VIA GURNEY.
[2018-06-08] MEDS ORDERED: ONDANSETRON 2MG/ML, 2ML ONE (20:34)
[2018-06-08] MEDS ORDERED: PROPOFOL 10 MG/ML, 20ML ONE (20:34)
[2018-06-08] MEDS ORDERED: FENTANYL PF 100 MCG/2ML ONE (21:24)
[2018-06-08] MEDS ORDERED: OXYcodone 5 MG/5 ML ORAL.SOL UDC ONE (21:25)
[2018-06-08] MEDS ORDERED: INSULIN LISPRO 100 UNITS/ML, PEN SQ-INSULIN SCH (21:30)
[2018-06-08] MEDS ORDERED: ENALAPRILAT 1.25 MG/ML, 2ML IVPush PRN (21:30)
[2018-06-08] MEDS ORDERED: OXYcodone 5 MG/5 ML ORAL.SOL UDC PO PRN (21:30)
[2018-06-08] MEDS ORDERED: PROMETHAZINE 25 MG/ML, 1ML IM PRN (21:30)
[2018-06-08] MEDS ORDERED: morphine SULFATE 10 MG/ML, 1ML IVPush PRN (21:30)
[2018-06-08] MEDS ORDERED: hydrALAzine 20 MG/ML, 1ML IV PRN (21:30)
[2018-06-08] MEDS ORDERED: ACETAMINOPHEN 325 MG TABLET PO PRN (21:30)
[2018-06-08] MEDS ORDERED: MIDAZOLAM 1 MG/ML, 2ML IV PRN (21:30)
[2018-06-08] MEDS ORDERED: ONDANSETRON 2MG/ML, 2ML IVPush PRN (21:30)
[2018-06-08] MEDS ORDERED: FENTANYL PF 100 MCG/2ML IV PRN (21:30)
[2018-06-08] MEDS ORDERED: LABETALOL 5MG/ML, 20ML IV PRN (21:30)
[2018-06-08] MEDS ORDERED: LABETALOL 5MG/ML, 20ML IVPush PRN (21:30)
[2018-06-08] MEDS ORDERED: METRONIDAZOLE PMX 500MG/100ML 100 ML IVPB SCH (22:30)
[2018-06-08] MEDS ORDERED: LABETALOL 5 MG/ML SYRINGE IVPush PRN (22:30)
[2018-06-08] MEDS ORDERED: NITROGLYCERIN 0.4 MG BOTTLE (25 TABS) SL PRN (22:30)
[2018-06-08] MEDS: INSULIN LISPRO 100 UNITS/ML, PEN SQ-INSULIN SCH (23:05)
[2018-06-08] MEDS: SODIUM CHLORIDE 0.9% 1,000 ML IV SCH (23:05)
[2018-06-08 23:25] VITALS: BP 128/80
[2018-06-09] MEDS: CEFAZOLIN PMX 2GM/50ML 50 ML IVPB SCH ×2 (01:15→12:59)
[2018-06-09 01:32] VITALS: BP 111/71
[2018-06-09 05:19] LABS: CALCIUM 8.3 mg/dL (8.5-10.1); CHLORIDE 106 mmol/L (98-107)
[2018-06-09 05:24] LABS: ALANINE AMINOTRANSFERASE 11 U/L (12-78); ALBUMIN 2.9 g/dL (3.4-5.0); ALKALINE PHOSPHATASE 114 U/L (45-117); ANION GAP 8 mmol/L (5-15); BASOPHILS # (AUTO) 0.03 x10^3/uL (0-0.1); BASOPHILS % (AUTO) 1 % (0-1); BILIRUBIN,TOTAL 0.3 mg/dL (0.2-1.0); CREATININE 1.52 mg/dL (0.7-1.3); EOSINOPHILS # (AUTO) 0.17 x10^3/uL (0-0.4); EOSINOPHILS % (AUTO) 3 % (1-7); LYMPHOCYTES # (AUTO) 1.39 x10^3/uL (1-3.4); LYMPHOCYTES % (AUTO) 22 % (22-44); MD NO; MEAN CORPUSCULAR HGB CONC 33.8 g/dL (33.2-36.2); MEAN CORPUSCULAR VOLUME 88.7 fL (81-97); MONOCYTES % (AUTO) 8 % (2-9); NEUTROPHILS # (AUTO) 4.11 x10^3/uL (1.8-6.8); NEUTROPHILS % (AUTO) 66 % (42-75); PLATELET COUNT 283 x10^3/uL (130-400); RED BLOOD COUNT 4.15 x10^6/uL (4.38-5.82); RED CELL DISTRIBUTION WIDTH 13.4 % (9.4-14.8); TOTAL PROTEIN 6.6 g/dL (6.4-8.2)
[2018-06-09 07:33] VITALS: BP 134/84
[2018-06-09] MEDS: INSULIN LISPRO 100 UNITS/ML, PEN SQ-INSULIN SCH ×4 (09:15→21:13)
[2018-06-09] MEDS: BUSPIRONE 10 MG TABLET PO SCH (09:16)
[2018-06-09] MEDS: SPIRONOLACTONE 25 MG TABLET PO SCH (09:16)
[2018-06-09] MEDS: metFORMIN XR 500 MG TAB.ER.24H PO SCH ×2 (09:17→21:13)
[2018-06-09] MEDS: CARVEDILOL 6.25 MG TABLET PO SCH ×2 (09:17→21:14)
[2018-06-09] MEDS: GABAPENTIN 400 MG CAPSULE PO SCH ×3 (09:18→21:14)
[2018-06-09] MEDS: FUROSEMIDE 20 MG TABLET PO SCH (09:18)
[2018-06-09] MEDS: ASPIRIN 81 MG TABLET EC PO SCH (09:19)
[2018-06-09] MEDS: LISINOPRIL 10 MG TABLET PO SCH ×2 (09:19→21:14)
[2018-06-09] MEDS: OXYcodone/APAP 7.5/325MG TABLET PO PRN (09:21)
[2018-06-09] MEDS: SODIUM CHLORIDE 0.9% 1,000 ML IV SCH (10:45)
[2018-06-09 12:16] VITALS: BP 129/79
[2018-06-09 12:30] VITALS: BP 124/79
[2018-06-09] MEDS ORDERED: CEFTRIAXONE PMX 1GM/50ML 50 ML IV SCH (18:00)
[2018-06-09 19:30] VITALS: BP 123/78
[2018-06-09] MEDS: ATORVASTATIN 40 MG TABLET PO SCH (21:14)
[2018-06-10] MEDS: CEFAZOLIN PMX 2GM/50ML 50 ML IVPB SCH ×2 (00:34→13:25)
[2018-06-10 02:55] VITALS: BP 149/82
[2018-06-10] MEDS: OXYcodone/APAP 7.5/325MG TABLET PO PRN ×3 (03:09→16:57)
[2018-06-10 04:50] LABS: BASOPHILS # (AUTO) 0.03 x10^3/uL (0-0.1); BASOPHILS % (AUTO) 1 % (0-1); EOSINOPHILS # (AUTO) 0.18 x10^3/uL (0-0.4); EOSINOPHILS % (AUTO) 3 % (1-7); LYMPHOCYTES # (AUTO) 1.03 x10^3/uL (1-3.4); LYMPHOCYTES % (AUTO) 16 % (22-44); MD NO; MEAN CORPUSCULAR VOLUME 88.3 fL (81-97); MEAN PLATELET VOLUME 7.8 fL (7.4-10.4); MONOCYTES # (AUTO) 0.43 x10^3/uL (0.2-0.8); MONOCYTES % (AUTO) 7 % (2-9); NEUTROPHILS # (AUTO) 4.68 x10^3/uL (1.8-6.8); NEUTROPHILS % (AUTO) 74 % (42-75); PLATELET COUNT 298 x10^3/uL (130-400); RED BLOOD COUNT 4.11 x10^6/uL (4.38-5.82); RED CELL DISTRIBUTION WIDTH 13.8 % (9.4-14.8)
[2018-06-10 05:01] LABS: ANION GAP 7 mmol/L (5-15); CALCIUM 8.4 mg/dL (8.5-10.1); CHLORIDE 107 mmol/L (98-107); CREATININE 1.61 mg/dL (0.7-1.3)
[2018-06-10 07:01] VITALS: BP 127/76
[2018-06-10] MEDS: INSULIN LISPRO 100 UNITS/ML, PEN SQ-INSULIN SCH ×4 (09:00→22:15)
[2018-06-10] MEDS ORDERED: METRONIDAZOLE PMX 500MG/100ML 100 ML IV ONE (09:00)
[2018-06-10] MEDS: BUSPIRONE 10 MG TABLET PO SCH (09:00)
[2018-06-10] MEDS: SPIRONOLACTONE 25 MG TABLET PO SCH (09:00)
[2018-06-10] MEDS: CARVEDILOL 6.25 MG TABLET PO SCH ×2 (09:00→22:14)
[2018-06-10] MEDS: ASPIRIN 81 MG TABLET EC PO SCH (09:00)
[2018-06-10 09:01] LABS: HEMOGLOBIN A1C 12.5 % (4.2-6.3)
[2018-06-10] MEDS: CLOPIDOGREL 75 MG TABLET PO SCH (09:01)
[2018-06-10] MEDS: GABAPENTIN 400 MG CAPSULE PO SCH ×3 (09:01→22:13)
[2018-06-10] MEDS: LISINOPRIL 10 MG TABLET PO SCH ×2 (09:01→22:14)
[2018-06-10] MEDS: FUROSEMIDE 20 MG TABLET PO SCH (09:01)
[2018-06-10 12:26] VITALS: BP 124/80
[2018-06-10 19:55] VITALS: BP 117/79
[2018-06-10] MEDS: ATORVASTATIN 40 MG TABLET PO SCH (22:14)
[2018-06-11] MEDS: CEFAZOLIN PMX 2GM/50ML 50 ML IVPB SCH ×2 (00:53→13:26)
[2018-06-11 02:55] VITALS: BP 122/72
[2018-06-11 05:29] LABS: ANION GAP 5 mmol/L (5-15); CALCIUM 8.9 mg/dL (8.5-10.1); CHLORIDE 106 mmol/L (98-107)
[2018-06-11 08:00] VITALS: BP 119/74
[2018-06-11] MEDS: INSULIN LISPRO 100 UNITS/ML, PEN SQ-INSULIN SCH ×4 (08:47→21:55)
[2018-06-11] MEDS: FUROSEMIDE 20 MG TABLET PO SCH (08:48)
[2018-06-11] MEDS: LISINOPRIL 10 MG TABLET PO SCH ×2 (08:48→21:55)
[2018-06-11] MEDS: BUSPIRONE 10 MG TABLET PO SCH (08:48)
[2018-06-11] MEDS: ASPIRIN 81 MG TABLET EC PO SCH (08:48)
[2018-06-11] MEDS: CLOPIDOGREL 75 MG TABLET PO SCH (08:48)
[2018-06-11] MEDS: CARVEDILOL 6.25 MG TABLET PO SCH ×2 (08:48→21:55)
[2018-06-11] MEDS: GABAPENTIN 400 MG CAPSULE PO SCH ×3 (08:48→21:55)
[2018-06-11] MEDS: SPIRONOLACTONE 25 MG TABLET PO SCH (08:48)
[2018-06-11 12:55] VITALS: BP 101/60
[2018-06-11] MEDS: OXYcodone/APAP 7.5/325MG TABLET PO PRN ×2 (13:26→21:56)
[2018-06-11 20:00] VITALS: BP 115/74
[2018-06-11] MEDS: ATORVASTATIN 40 MG TABLET PO SCH (21:55)
[2018-06-11] MEDS: INSULIN GLARGINE 100 UNITS/ML, PEN SQ-INSULIN SCH (21:56)
[2018-06-12] MEDS: CEFAZOLIN PMX 2GM/50ML 50 ML IVPB SCH ×2 (01:03→12:42)
[2018-06-12 02:20] VITALS: BP 117/71
[2018-06-12 06:58] LABS: MEAN CORPUSCULAR HEMOGLOBIN 29.3 pg (27.5-34.5); MEAN CORPUSCULAR HGB CONC 33.4 g/dL (33.2-36.2); MEAN PLATELET VOLUME 7.7 fL (7.4-10.4); PLATELET COUNT 383 x10^3/uL (130-400); RED CELL DISTRIBUTION WIDTH 13.4 % (9.4-14.8)
[2018-06-12 07:08] LABS: ANION GAP 7 mmol/L (5-15); CALCIUM 9.4 mg/dL (8.5-10.1); CHLORIDE 107 mmol/L (98-107); CREATININE 1.78 mg/dL (0.7-1.3)
[2018-06-12 07:10] VITALS: BP 125/82
[2018-06-12 07:25] LABS: BASOPHILS # (AUTO) 0.08 x10^3/uL (0-0.1); BASOPHILS % (AUTO) 1 % (0-1); EOSINOPHILS # (AUTO) 0.21 x10^3/uL (0-0.4); EOSINOPHILS % (AUTO) 3 % (1-7); LYMPHOCYTES # (AUTO) 1.31 x10^3/uL (1-3.4); LYMPHOCYTES % (AUTO) 19 % (22-44); MD SCAN; MONOCYTES # (AUTO) 0.47 x10^3/uL (0.2-0.8); MONOCYTES % (AUTO) 7 % (2-9); NEUTROPHILS # (AUTO) 4.98 x10^3/uL (1.8-6.8); NEUTROPHILS % (AUTO) 71 % (42-75)
[2018-06-12] MEDS: BUSPIRONE 10 MG TABLET PO SCH (08:35)
[2018-06-12] MEDS: GABAPENTIN 400 MG CAPSULE PO SCH ×3 (08:35→20:15)
[2018-06-12] MEDS: FUROSEMIDE 20 MG TABLET PO SCH (08:35)
[2018-06-12] MEDS: CARVEDILOL 6.25 MG TABLET PO SCH ×2 (08:35→20:16)
[2018-06-12] MEDS: ASPIRIN 81 MG TABLET EC PO SCH (08:35)
[2018-06-12] MEDS: INSULIN LISPRO 100 UNITS/ML, PEN SQ-INSULIN SCH ×4 (08:35→20:26)
[2018-06-12] MEDS: SPIRONOLACTONE 25 MG TABLET PO SCH (08:35)
[2018-06-12] MEDS: CLOPIDOGREL 75 MG TABLET PO SCH (08:35)
[2018-06-12] MEDS: LISINOPRIL 10 MG TABLET PO SCH ×2 (08:36→20:15)
[2018-06-12] MEDS ORDERED: INSU100I13 SQ-INSULIN ×2 (09:07)
[2018-06-12] MEDS ORDERED: DOXY100T9 PO (09:07)
[2018-06-12] MEDS ORDERED: CLIN300C8 PO (09:07)
[2018-06-12 13:51] VITALS: BP 130/77
[2018-06-12 20:01] VITALS: BP 151/88
[2018-06-12] MEDS: ATORVASTATIN 40 MG TABLET PO SCH (20:15)
[2018-06-12] MEDS: INSULIN GLARGINE 100 UNITS/ML, PEN SQ-INSULIN SCH (20:27)
[2018-06-12] MEDS: OXYcodone/APAP 7.5/325MG TABLET PO PRN (20:51)
[2018-06-13] MEDS: CEFAZOLIN PMX 2GM/50ML 50 ML IVPB SCH ×2 (00:53→13:39)
[2018-06-13 03:59] VITALS: BP 118/77
[2018-06-13 07:18] VITALS: BP 119/79
[2018-06-13] MEDS: CLOPIDOGREL 75 MG TABLET PO SCH (07:50)
[2018-06-13] MEDS: CARVEDILOL 6.25 MG TABLET PO SCH ×2 (07:50→20:43)
[2018-06-13] MEDS: LISINOPRIL 10 MG TABLET PO SCH ×2 (07:50→20:43)
[2018-06-13] MEDS: FUROSEMIDE 20 MG TABLET PO SCH (07:50)
[2018-06-13] MEDS: ASPIRIN 81 MG TABLET EC PO SCH (07:50)
[2018-06-13] MEDS: GABAPENTIN 400 MG CAPSULE PO SCH ×3 (07:50→20:43)
[2018-06-13] MEDS: SPIRONOLACTONE 25 MG TABLET PO SCH (07:50)
[2018-06-13] MEDS: BUSPIRONE 10 MG TABLET PO SCH (07:50)
[2018-06-13] MEDS: INSULIN LISPRO 100 UNITS/ML, PEN SQ-INSULIN SCH ×4 (07:52→21:39)
[2018-06-13 12:45] VITALS: BP 105/66
[2018-06-13 19:02] VITALS: BP 135/74
[2018-06-13] MEDS: ATORVASTATIN 40 MG TABLET PO SCH (20:43)
[2018-06-13] MEDS ORDERED: INSULIN GLARGINE 100 UNITS/ML, PEN SQ-INSULIN SCH (21:00)
[2018-06-14 01:54] VITALS: BP 117/82
[2018-06-14 07:35] VITALS: BP 112/70
[2018-06-14] MEDS: INSULIN LISPRO 100 UNITS/ML, PEN SQ-INSULIN SCH (08:19)
[2018-06-14] MEDS: CLOPIDOGREL 75 MG TABLET PO SCH (08:20)
[2018-06-14] MEDS: ASPIRIN 81 MG TABLET EC PO SCH (08:20)
[2018-06-14] MEDS: FUROSEMIDE 20 MG TABLET PO SCH (08:20)
[2018-06-14] MEDS: BUSPIRONE 10 MG TABLET PO SCH (08:20)
[2018-06-14] MEDS: SPIRONOLACTONE 25 MG TABLET PO SCH (08:20)
[2018-06-14] MEDS: LISINOPRIL 10 MG TABLET PO SCH (08:20)
[2018-06-14] MEDS: GABAPENTIN 400 MG CAPSULE PO SCH (08:20)
[2018-06-14] MEDS: CARVEDILOL 6.25 MG TABLET PO SCH (08:21)
[2018-06-14] MEDS ORDERED: INSULIN GLARGINE 100 UNITS/ML, PEN SQ-INSULIN SCH (09:00)
[2018-06-14] MEDS ORDERED: INSU100I13 SQ-INSULIN (12:00)
== END 2018-06-14 09:42 | disposition home health service (06) | DRG 570 ==
LOC: ED 15:31 → EDIP 17:39 → 3NE 22:05 → DCLOUNGE 06-14 09:25
PROVIDERS: ADMIT Hospitalist; ATTEND Hospitalist
PROC: 0JB60ZZ Excision of Chest Subcutaneous Tissue and Fascia, Open Approach (ICD-10-PCS; principal; 2018-06-08 20:15)
DX: L72.3 Sebaceous cyst (principal); N17.0 Acute kidney failure with tubular necrosis; L02.213 Cutaneous abscess of chest wall; E87.1 Hypo-osmolality and hyponatremia; E11.52 Type 2 diabetes mellitus with diabetic peripheral angiopathy with gangrene; E11.65 Type 2 diabetes mellitus with hyperglycemia; E78.00 Pure hypercholesterolemia, unspecified; E78.5 Hyperlipidemia, unspecified; I10 Essential (primary) hypertension; G89.29 Other chronic pain; I25.10 Atherosclerotic heart disease of native coronary artery without angina pectoris; Z88.0 Allergy status to penicillin; Z79.4 Long term (current) use of insulin; Z87.891 Personal history of nicotine dependence; Z95.1 Presence of aortocoronary bypass graft
CPT/HCPCS: 36415; 71046; 71250; 80048; 80053; 82010; 82803; 82962; 83036; 85025; 87040; 87070; 87075; 87205; 88305; 96361; 96365; 96375; G0378; J0690; J0696; J2405; J2704; J3010; J1815; J7030

== ENCOUNTER 2018-06-15 12:34 | Emergency (ER) | payer MEDICARE ==
[~2018-06-15] VITALS: Ht 167.6 cm; Wt 95.1 kg
[~2018-06-15 12:34] MED LIST changes: +CLIN300C8 PO; +DOXY100T9 PO; +INSU100I13 SQ-INSULIN
[2018-06-15 12:37] VITALS: BP 149/86
--- NOTE | 2018-06-15 13:27 | NUR ---
Wet-to-dry dressing placed using sterile technique to pt's open wound approx 3"x3" round. Had surgical I&D last week & dressing changed 28hr ago. Some eschar & granulation tissue noted. No odor, immediate surrounding skin is red but not spreading or streaking. Pt advised to call wound care in the morning to schedule next appt.
== END 2018-06-15 13:31 | disposition home or self-care (01) ==
LOC: ED 13:08
DX: L02.213 Cutaneous abscess of chest wall (principal); E78.00 Pure hypercholesterolemia, unspecified; I10 Essential (primary) hypertension; I25.10 Atherosclerotic heart disease of native coronary artery without angina pectoris; E11.9 Type 2 diabetes mellitus without complications; E78.5 Hyperlipidemia, unspecified; Z95.1 Presence of aortocoronary bypass graft
CPT/HCPCS: 99283

== ENCOUNTER → 2018-06-18 | Outpatient (CLI) | payer MEDICARE | END | disposition home or self-care (01) | LOC: WOUND 13:07 | PROVIDERS: ATTEND Internal Medicine | DX: L03.313 Cellulitis of chest wall (principal); L72.3 Sebaceous cyst; E11.65 Type 2 diabetes mellitus with hyperglycemia; E11.52 Type 2 diabetes mellitus with diabetic peripheral angiopathy with gangrene; I96 Gangrene, not elsewhere classified; G89.29 Other chronic pain; E78.5 Hyperlipidemia, unspecified; I10 Essential (primary) hypertension; E78.00 Pure hypercholesterolemia, unspecified; Z79.4 Long term (current) use of insulin; Z87.891 Personal history of nicotine dependence; I25.10 Atherosclerotic heart disease of native coronary artery without angina pectoris | CPT/HCPCS: 97597; 97598; G0463 ==

== ENCOUNTER → 2018-06-20 | Outpatient (CLI) | payer MEDICARE | END | disposition home or self-care (01) | LOC: WOUND 08:08 | PROVIDERS: ATTEND Family Medicine | DX: L03.313 Cellulitis of chest wall (principal); L72.3 Sebaceous cyst; E11.65 Type 2 diabetes mellitus with hyperglycemia; E11.51 Type 2 diabetes mellitus with diabetic peripheral angiopathy without gangrene; G89.29 Other chronic pain; I10 Essential (primary) hypertension; E78.5 Hyperlipidemia, unspecified; I96 Gangrene, not elsewhere classified; I25.10 Atherosclerotic heart disease of native coronary artery without angina pectoris; Z79.4 Long term (current) use of insulin; Z88.0 Allergy status to penicillin; Z87.891 Personal history of nicotine dependence | CPT/HCPCS: G0463 ==

== ENCOUNTER → 2018-06-23 | Outpatient (CLI) | payer MEDICARE | END | disposition home or self-care (01) | LOC: WOUND 10:28 | PROVIDERS: ATTEND Internal Medicine | DX: L03.313 Cellulitis of chest wall (principal); L72.3 Sebaceous cyst; E11.52 Type 2 diabetes mellitus with diabetic peripheral angiopathy with gangrene; I96 Gangrene, not elsewhere classified; E11.65 Type 2 diabetes mellitus with hyperglycemia; G89.4 Chronic pain syndrome; E78.5 Hyperlipidemia, unspecified; I10 Essential (primary) hypertension; E78.00 Pure hypercholesterolemia, unspecified; I25.10 Atherosclerotic heart disease of native coronary artery without angina pectoris; Z79.4 Long term (current) use of insulin; Z87.891 Personal history of nicotine dependence | CPT/HCPCS: G0463 ==

== ENCOUNTER → 2018-06-25 | Outpatient (CLI) | payer MEDICARE | END | disposition home or self-care (01) | LOC: WOUND 08:43 | PROVIDERS: ATTEND Internal Medicine | DX: L03.313 Cellulitis of chest wall (principal); L72.3 Sebaceous cyst; E11.52 Type 2 diabetes mellitus with diabetic peripheral angiopathy with gangrene; I96 Gangrene, not elsewhere classified; E11.65 Type 2 diabetes mellitus with hyperglycemia; G89.4 Chronic pain syndrome; E78.5 Hyperlipidemia, unspecified; I10 Essential (primary) hypertension; E78.00 Pure hypercholesterolemia, unspecified; I25.10 Atherosclerotic heart disease of native coronary artery without angina pectoris; Z79.4 Long term (current) use of insulin; Z87.891 Personal history of nicotine dependence | CPT/HCPCS: 97597; 97598 ==

== ENCOUNTER → 2018-06-27 | Outpatient (CLI) | payer MEDICARE | END | disposition home or self-care (01) | LOC: WOUND 08:15 | PROVIDERS: ATTEND Family Medicine | DX: L03.313 Cellulitis of chest wall (principal); L72.3 Sebaceous cyst; E11.65 Type 2 diabetes mellitus with hyperglycemia; E11.52 Type 2 diabetes mellitus with diabetic peripheral angiopathy with gangrene; I96 Gangrene, not elsewhere classified; G89.4 Chronic pain syndrome; E78.5 Hyperlipidemia, unspecified; I10 Essential (primary) hypertension; E78.00 Pure hypercholesterolemia, unspecified; I25.10 Atherosclerotic heart disease of native coronary artery without angina pectoris; Z88.0 Allergy status to penicillin; Z79.4 Long term (current) use of insulin; Z95.1 Presence of aortocoronary bypass graft; Z87.891 Personal history of nicotine dependence | CPT/HCPCS: G0463 ==

== ENCOUNTER → 2018-06-30 | Outpatient (CLI) | payer MEDICARE | END | disposition home or self-care (01) | LOC: WOUND 08:13 | PROVIDERS: ATTEND Internal Medicine | DX: L03.313 Cellulitis of chest wall (principal); L72.3 Sebaceous cyst; E11.51 Type 2 diabetes mellitus with diabetic peripheral angiopathy without gangrene; E11.65 Type 2 diabetes mellitus with hyperglycemia; G89.4 Chronic pain syndrome; E78.5 Hyperlipidemia, unspecified; I10 Essential (primary) hypertension; I96 Gangrene, not elsewhere classified; E78.00 Pure hypercholesterolemia, unspecified; I25.10 Atherosclerotic heart disease of native coronary artery without angina pectoris; Z88.0 Allergy status to penicillin; Z79.4 Long term (current) use of insulin; Z95.1 Presence of aortocoronary bypass graft; Z87.891 Personal history of nicotine dependence | CPT/HCPCS: G0463 ==

== ENCOUNTER → 2018-07-02 | Outpatient (CLI) | payer MEDICARE | END | disposition home or self-care (01) | LOC: WOUND 08:25 | PROVIDERS: ATTEND Internal Medicine | DX: T81.89XD Other complications of procedures, not elsewhere classified, subsequent encounter (principal); L72.3 Sebaceous cyst; L03.313 Cellulitis of chest wall; E11.65 Type 2 diabetes mellitus with hyperglycemia; E11.40 Type 2 diabetes mellitus with diabetic neuropathy, unspecified; E11.52 Type 2 diabetes mellitus with diabetic peripheral angiopathy with gangrene; I96 Gangrene, not elsewhere classified; G89.4 Chronic pain syndrome; I25.2 Old myocardial infarction; E78.5 Hyperlipidemia, unspecified; I10 Essential (primary) hypertension; E78.00 Pure hypercholesterolemia, unspecified; I25.10 Atherosclerotic heart disease of native coronary artery without angina pectoris; Z88.0 Allergy status to penicillin; Z79.4 Long term (current) use of insulin; Z95.1 Presence of aortocoronary bypass graft; Z87.891 Personal history of nicotine dependence; Y83.8 Other surgical procedures as the cause of abnormal reaction of the patient, or of later complication, without mention of misadventure at the time of the procedure | CPT/HCPCS: 97597 ==

== ENCOUNTER 2018-07-04 13:44 | Outpatient (CLI) | payer MEDICARE | END 2018-07-04 23:59 | disposition home or self-care (01) | LOC: WOUND 13:44 | PROVIDERS: ATTEND Family Medicine | DX: T81.31XD Disruption of external operation (surgical) wound, not elsewhere classified, subsequent encounter (principal); L03.313 Cellulitis of chest wall; L72.3 Sebaceous cyst; E11.40 Type 2 diabetes mellitus with diabetic neuropathy, unspecified; E11.65 Type 2 diabetes mellitus with hyperglycemia; E11.52 Type 2 diabetes mellitus with diabetic peripheral angiopathy with gangrene; I96 Gangrene, not elsewhere classified; I10 Essential (primary) hypertension; E78.5 Hyperlipidemia, unspecified; G89.4 Chronic pain syndrome; I25.2 Old myocardial infarction; E78.00 Pure hypercholesterolemia, unspecified; I25.10 Atherosclerotic heart disease of native coronary artery without angina pectoris; Z88.0 Allergy status to penicillin; Z79.4 Long term (current) use of insulin; Z95.1 Presence of aortocoronary bypass graft; Z87.891 Personal history of nicotine dependence; Y83.8 Other surgical procedures as the cause of abnormal reaction of the patient, or of later complication, without mention of misadventure at the time of the procedure | CPT/HCPCS: G0463 ==

== ENCOUNTER → 2018-07-09 | Outpatient (CLI) | payer MEDICARE | END | disposition home or self-care (01) | LOC: WOUND 08:53 | PROVIDERS: ATTEND Internal Medicine | DX: T81.89XD Other complications of procedures, not elsewhere classified, subsequent encounter (principal); L03.313 Cellulitis of chest wall; L72.3 Sebaceous cyst; I25.10 Atherosclerotic heart disease of native coronary artery without angina pectoris; I10 Essential (primary) hypertension; E78.5 Hyperlipidemia, unspecified; E11.9 Type 2 diabetes mellitus without complications; Z95.1 Presence of aortocoronary bypass graft; Z87.891 Personal history of nicotine dependence; Y83.8 Other surgical procedures as the cause of abnormal reaction of the patient, or of later complication, without mention of misadventure at the time of the procedure | CPT/HCPCS: 97597 ==

== ENCOUNTER → 2018-07-11 | Outpatient (CLI) | payer MEDICARE | END | disposition home or self-care (01) | LOC: WOUND 08:36 | PROVIDERS: ATTEND Family Medicine | DX: T81.89XD Other complications of procedures, not elsewhere classified, subsequent encounter (principal); L72.3 Sebaceous cyst; L03.313 Cellulitis of chest wall; E11.65 Type 2 diabetes mellitus with hyperglycemia; E11.52 Type 2 diabetes mellitus with diabetic peripheral angiopathy with gangrene; I96 Gangrene, not elsewhere classified; E11.40 Type 2 diabetes mellitus with diabetic neuropathy, unspecified; E78.5 Hyperlipidemia, unspecified; I10 Essential (primary) hypertension; G89.4 Chronic pain syndrome; I25.2 Old myocardial infarction; E78.00 Pure hypercholesterolemia, unspecified; I25.10 Atherosclerotic heart disease of native coronary artery without angina pectoris; Z79.4 Long term (current) use of insulin; Z87.891 Personal history of nicotine dependence; Z95.1 Presence of aortocoronary bypass graft; Z88.0 Allergy status to penicillin; Y83.8 Other surgical procedures as the cause of abnormal reaction of the patient, or of later complication, without mention of misadventure at the time of the procedure | CPT/HCPCS: G0463 ==

== ENCOUNTER → 2018-07-14 | Outpatient (CLI) | payer MEDICARE | END | disposition home or self-care (01) | LOC: WOUND 08:15 | PROVIDERS: ATTEND Internal Medicine | DX: T81.89XD Other complications of procedures, not elsewhere classified, subsequent encounter (principal); L03.313 Cellulitis of chest wall; L72.3 Sebaceous cyst; E11.40 Type 2 diabetes mellitus with diabetic neuropathy, unspecified; E11.65 Type 2 diabetes mellitus with hyperglycemia; E11.52 Type 2 diabetes mellitus with diabetic peripheral angiopathy with gangrene; I96 Gangrene, not elsewhere classified; I10 Essential (primary) hypertension; G89.4 Chronic pain syndrome; E78.5 Hyperlipidemia, unspecified; E78.00 Pure hypercholesterolemia, unspecified; I25.2 Old myocardial infarction; I25.10 Atherosclerotic heart disease of native coronary artery without angina pectoris; Z88.0 Allergy status to penicillin; Z79.4 Long term (current) use of insulin; Z87.891 Personal history of nicotine dependence; Z95.1 Presence of aortocoronary bypass graft; Y83.8 Other surgical procedures as the cause of abnormal reaction of the patient, or of later complication, without mention of misadventure at the time of the procedure | CPT/HCPCS: G0463 ==

== ENCOUNTER 2018-07-16 08:04 | Outpatient (CLI) | payer MEDICARE | END 2018-07-16 23:59 | disposition home or self-care (01) | LOC: WOUND 08:04 | PROVIDERS: ATTEND Internal Medicine | DX: T81.89XD Other complications of procedures, not elsewhere classified, subsequent encounter (principal); L72.3 Sebaceous cyst; L03.313 Cellulitis of chest wall; E11.52 Type 2 diabetes mellitus with diabetic peripheral angiopathy with gangrene; I96 Gangrene, not elsewhere classified; E11.40 Type 2 diabetes mellitus with diabetic neuropathy, unspecified; E11.65 Type 2 diabetes mellitus with hyperglycemia; G89.29 Other chronic pain; E78.2 Mixed hyperlipidemia; I25.2 Old myocardial infarction; I10 Essential (primary) hypertension; E78.00 Pure hypercholesterolemia, unspecified; I25.10 Atherosclerotic heart disease of native coronary artery without angina pectoris; Z88.0 Allergy status to penicillin; Z79.4 Long term (current) use of insulin; Z87.891 Personal history of nicotine dependence; Z95.1 Presence of aortocoronary bypass graft; Y83.8 Other surgical procedures as the cause of abnormal reaction of the patient, or of later complication, without mention of misadventure at the time of the procedure | CPT/HCPCS: 97597 ==

== ENCOUNTER → 2018-07-18 | Outpatient (CLI) | payer MEDICARE | END | disposition home or self-care (01) | LOC: WOUND 08:00 | PROVIDERS: ATTEND Family Medicine | DX: T81.31XD Disruption of external operation (surgical) wound, not elsewhere classified, subsequent encounter (principal); L72.3 Sebaceous cyst; L03.313 Cellulitis of chest wall; E11.40 Type 2 diabetes mellitus with diabetic neuropathy, unspecified; E11.65 Type 2 diabetes mellitus with hyperglycemia; E11.52 Type 2 diabetes mellitus with diabetic peripheral angiopathy with gangrene; I96 Gangrene, not elsewhere classified; E78.2 Mixed hyperlipidemia; G89.4 Chronic pain syndrome; I25.2 Old myocardial infarction; I10 Essential (primary) hypertension; E78.00 Pure hypercholesterolemia, unspecified; I25.10 Atherosclerotic heart disease of native coronary artery without angina pectoris; Z88.0 Allergy status to penicillin; Z87.891 Personal history of nicotine dependence; Z79.4 Long term (current) use of insulin; Z95.1 Presence of aortocoronary bypass graft; Y83.8 Other surgical procedures as the cause of abnormal reaction of the patient, or of later complication, without mention of misadventure at the time of the procedure | CPT/HCPCS: G0463 ==

== ENCOUNTER → 2018-07-21 | Outpatient (CLI) | payer MEDICARE | END | disposition home or self-care (01) | LOC: WOUND 07:57 | PROVIDERS: ATTEND Internal Medicine | DX: T81.31XD Disruption of external operation (surgical) wound, not elsewhere classified, subsequent encounter (principal); L72.3 Sebaceous cyst; L03.313 Cellulitis of chest wall; E11.40 Type 2 diabetes mellitus with diabetic neuropathy, unspecified; E11.52 Type 2 diabetes mellitus with diabetic peripheral angiopathy with gangrene; I96 Gangrene, not elsewhere classified; E11.65 Type 2 diabetes mellitus with hyperglycemia; G89.4 Chronic pain syndrome; I10 Essential (primary) hypertension; E78.00 Pure hypercholesterolemia, unspecified; I25.2 Old myocardial infarction; E78.2 Mixed hyperlipidemia; I25.10 Atherosclerotic heart disease of native coronary artery without angina pectoris; Z88.0 Allergy status to penicillin; Z95.1 Presence of aortocoronary bypass graft; Z87.891 Personal history of nicotine dependence; Y83.8 Other surgical procedures as the cause of abnormal reaction of the patient, or of later complication, without mention of misadventure at the time of the procedure; Z79.4 Long term (current) use of insulin | CPT/HCPCS: 99212 ==

== ENCOUNTER → 2018-07-23 | Outpatient (CLI) | payer MEDICARE | END | disposition home or self-care (01) | LOC: WOUND 07:39 | PROVIDERS: ATTEND Internal Medicine | DX: T81.89XD Other complications of procedures, not elsewhere classified, subsequent encounter (principal); L03.313 Cellulitis of chest wall; L72.3 Sebaceous cyst; E11.40 Type 2 diabetes mellitus with diabetic neuropathy, unspecified; E11.65 Type 2 diabetes mellitus with hyperglycemia; E11.52 Type 2 diabetes mellitus with diabetic peripheral angiopathy with gangrene; I96 Gangrene, not elsewhere classified; I10 Essential (primary) hypertension; G89.4 Chronic pain syndrome; E78.5 Hyperlipidemia, unspecified; E78.00 Pure hypercholesterolemia, unspecified; I25.2 Old myocardial infarction; I25.10 Atherosclerotic heart disease of native coronary artery without angina pectoris; Z88.0 Allergy status to penicillin; Z79.4 Long term (current) use of insulin; Z87.891 Personal history of nicotine dependence; Z95.1 Presence of aortocoronary bypass graft; Y83.8 Other surgical procedures as the cause of abnormal reaction of the patient, or of later complication, without mention of misadventure at the time of the procedure | CPT/HCPCS: 97597 ==

== ENCOUNTER → 2018-07-25 | Outpatient (CLI) | payer MEDICARE | END | disposition home or self-care (01) | LOC: WOUND 08:11 | PROVIDERS: ATTEND Family Medicine | DX: T81.89XD Other complications of procedures, not elsewhere classified, subsequent encounter (principal); L03.313 Cellulitis of chest wall; L72.3 Sebaceous cyst; E11.40 Type 2 diabetes mellitus with diabetic neuropathy, unspecified; E11.65 Type 2 diabetes mellitus with hyperglycemia; E11.52 Type 2 diabetes mellitus with diabetic peripheral angiopathy with gangrene; I96 Gangrene, not elsewhere classified; I10 Essential (primary) hypertension; G89.4 Chronic pain syndrome; E78.5 Hyperlipidemia, unspecified; E78.00 Pure hypercholesterolemia, unspecified; I25.2 Old myocardial infarction; I25.10 Atherosclerotic heart disease of native coronary artery without angina pectoris; Z88.0 Allergy status to penicillin; Z79.4 Long term (current) use of insulin; Z87.891 Personal history of nicotine dependence; Z95.1 Presence of aortocoronary bypass graft; Y83.8 Other surgical procedures as the cause of abnormal reaction of the patient, or of later complication, without mention of misadventure at the time of the procedure | CPT/HCPCS: G0463 ==

== ENCOUNTER → 2018-07-28 | Outpatient (CLI) | payer MEDICARE | END | disposition home or self-care (01) | LOC: WOUND 07:59 | PROVIDERS: ATTEND Internal Medicine | DX: T81.89XD Other complications of procedures, not elsewhere classified, subsequent encounter (principal); L03.313 Cellulitis of chest wall; L72.3 Sebaceous cyst; E11.40 Type 2 diabetes mellitus with diabetic neuropathy, unspecified; E11.65 Type 2 diabetes mellitus with hyperglycemia; E11.52 Type 2 diabetes mellitus with diabetic peripheral angiopathy with gangrene; I96 Gangrene, not elsewhere classified; I10 Essential (primary) hypertension; G89.4 Chronic pain syndrome; E78.5 Hyperlipidemia, unspecified; E78.00 Pure hypercholesterolemia, unspecified; I25.2 Old myocardial infarction; I25.10 Atherosclerotic heart disease of native coronary artery without angina pectoris; Z88.0 Allergy status to penicillin; Z79.4 Long term (current) use of insulin; Z87.891 Personal history of nicotine dependence; Z95.1 Presence of aortocoronary bypass graft; Y83.8 Other surgical procedures as the cause of abnormal reaction of the patient, or of later complication, without mention of misadventure at the time of the procedure | CPT/HCPCS: G0463 ==

== ENCOUNTER → 2018-07-30 | Outpatient (CLI) | payer MEDICARE | END | disposition home or self-care (01) | LOC: WOUND 08:00 | PROVIDERS: ATTEND Internal Medicine | DX: T81.89XD Other complications of procedures, not elsewhere classified, subsequent encounter (principal); L72.3 Sebaceous cyst; L03.313 Cellulitis of chest wall; E11.40 Type 2 diabetes mellitus with diabetic neuropathy, unspecified; E11.65 Type 2 diabetes mellitus with hyperglycemia; E11.21 Type 2 diabetes mellitus with diabetic nephropathy; E11.52 Type 2 diabetes mellitus with diabetic peripheral angiopathy with gangrene; I96 Gangrene, not elsewhere classified; G89.29 Other chronic pain; I10 Essential (primary) hypertension; I25.2 Old myocardial infarction; E78.2 Mixed hyperlipidemia; E78.00 Pure hypercholesterolemia, unspecified; I25.10 Atherosclerotic heart disease of native coronary artery without angina pectoris; Z88.0 Allergy status to penicillin; Z79.4 Long term (current) use of insulin; Z95.1 Presence of aortocoronary bypass graft; Z87.891 Personal history of nicotine dependence; Y83.8 Other surgical procedures as the cause of abnormal reaction of the patient, or of later complication, without mention of misadventure at the time of the procedure | CPT/HCPCS: 97597 ==

== ENCOUNTER → 2018-08-06 | Outpatient (CLI) | payer MEDICARE | END | disposition home or self-care (01) | LOC: WOUND 07:54 | PROVIDERS: ATTEND Internal Medicine | DX: T81.89XD Other complications of procedures, not elsewhere classified, subsequent encounter (principal); L72.3 Sebaceous cyst; L03.313 Cellulitis of chest wall; E11.65 Type 2 diabetes mellitus with hyperglycemia; E11.21 Type 2 diabetes mellitus with diabetic nephropathy; E11.52 Type 2 diabetes mellitus with diabetic peripheral angiopathy with gangrene; I96 Gangrene, not elsewhere classified; E11.40 Type 2 diabetes mellitus with diabetic neuropathy, unspecified; E78.2 Mixed hyperlipidemia; G89.4 Chronic pain syndrome; I25.2 Old myocardial infarction; I10 Essential (primary) hypertension; E78.00 Pure hypercholesterolemia, unspecified; I25.10 Atherosclerotic heart disease of native coronary artery without angina pectoris; Z88.0 Allergy status to penicillin; Z79.4 Long term (current) use of insulin; Z95.1 Presence of aortocoronary bypass graft; Z87.891 Personal history of nicotine dependence; Y83.8 Other surgical procedures as the cause of abnormal reaction of the patient, or of later complication, without mention of misadventure at the time of the procedure | CPT/HCPCS: G0463 ==